=== PATIENT | male | born 1970 | race Caucasian/White ===

== ENCOUNTER 2024-01-23 10:55 | Emergency (ER) | payer OTHER, SELFPAY ==
[2024-01-23] MEDS ORDERED: ONDANSETRON 4 MG/2 ML VIAL ONE ×2 (11:15→11:47)
[2024-01-23] MEDS ORDERED: KETOROLAC 30 MG/ML INJ ONE (11:15)
[2024-01-23] MEDS ORDERED: MORPHINE 4 MG/ML SYR ONE (11:16)
[2024-01-23] MEDS ORDERED: NA CHLORIDE 0.9% 1,000 ML ONE ×2 (11:16→12:14)
[2024-01-23] MEDS ORDERED: FAMOTIDINE 20 MG/2 ML VIAL IV ONE (11:16)
--- NOTE | 2024-01-23 11:27 | RAD REPORT ---
[facility] DES[facility] Protocol - 01/23/2024 11:10 am CLINICAL HISTORY: FLANK PAIN COMPARISON: No comparisons TECHNIQUE: CT of the abdomen and pelvis was performed without contrast. All CT scans are performed using dose optimization technique as appropriate and may include automated exposure control or mA/KV adjustment according to patient size. FINDINGS: Lower chest: No acute abnormality. Mild circumferential thickened distal esophagus could r eflect esophagitis. Liver: No acute abnormality or suspicious lesions. Hepatic steatosis Biliary: No biliary ductal dilatation. Stomach: No significant focal abnormality. Duodenum: No significant focal abnormality. Pancreas: No significant abnormality. Spleen: No significant abnormality. 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 No follow-up is required. Kidney/ureter: Mild left-sided hydroureteronephrosis secondary to a 3 mm stone at the left UVJ. There is also likely a left renal sinus cyst. 18 mm intermediate attenuation lesion at the interpolar aspe ct of the left kidney. Retroperitoneum: No retroperitoneal adenopathy. Vascular: No aneurysm. Bowel: Normal appendix. No bowel obstruction.. Peritoneum: No ascites or free air. Bladder: Grossly unremarkable. Reproductive: No adnexal masses. Bones: No acute fracture. Other: n/a IMPRESSION: Mild left-sided hydronephrosis secondary to a 3 mm stone at the left UVJ. Indeterminate left renal lesion, possibly complex cyst. Recommend nonemergent renal ultrasound.
[2024-01-23 11:36] LABS: Absolute Lymphocytes (CBC) 0.8 K/uL (0.7-4.9); Absolute Monocytes 0.7 K/uL (0.1-1.3); Absolute Neutrophil 6.9 K/uL (1.8-8.0); Basophils % 0.5 % (0-1.3); Eosinophils % 0.4 % (0-4.4); Hematocrit 38.9 % (39.6-49.0); Hemoglobin 13.3 g/dL (13.6-17.9); Lymphocytes % 9.5 % (15.3-44.8); MCH 28.9 pg (27.0-35.0); MCHC 34.1 g/dL (32.0-36.0); MCV 84.6 fL (80-100); MPV 7.7 fL (7.6-11.3); Monocytes % 8.8 % (3.3-12.3); Neutrophils % 80.8 % (41.7-73.7); Platelets 211 thou/uL (152-406); RBC Red Blood Cell Count 4.59 M/uL (4.33-5.43); Red Cell Distribution Width 13.4 % (12.1-15.2)
[2024-01-23 11:39] LABS: Specific Gravity > 1.030 (1.005-1.030); Sqamous Epithelial None Seen /HPF (None Seen); Urine Bacteria None Seen /HPF (<20); Urine Bilirubin NEGATIVE (Negative); Urine Blood 3+ (Negative); Urine Clarity Extremely Turbid (Clear); Urine Color Yellow (Yellow); Urine Culture Reflex Order NOT NEEDED; Urine Glucose NEGATIVE (Negative); Urine Ketones NEGATIVE (Negative); Urine Microscopic Reflex YN ORDER UMIC; Urine Mucus 4+ /HPF (None Seen); Urine Nitrite NEGATIVE (Negative); Urine Protein 1+ (Negative); Urine RBC >50 /HPF (None Seen); Urine Urobilinogen 1+ (Normal); Urine WBC <5 /HPF (<5); Urine pH 5.5 (5.0-7.0)
[2024-01-23] MEDS ORDERED: HYDROMORPHONE HCL 1 MG/ML INJ ONE (11:47)
[2024-01-23 11:53] LABS: Albumin 4.3 g/dL (3.4-5.0); Albumin/Globulin Ratio 1.3 (1.1-1.8); Anion Gap 7.1 mEq/L (5.0-15.0); Bilirubin Total 1.9 mg/dL (0.2-1.0); Globulin 3.4 g/dL (2.3-3.5); Potassium 4.1 mEq/L (3.5-5.1); Protein, Total 7.7 g/dL (6.4-8.2)
[2024-01-23] MEDS ORDERED: CEFTRIAXONE 1000 MG/VIAL ONE (12:14)
[2024-01-23] MEDS ORDERED: TAMSULOSIN 0.4 MG SR CAP ONE (12:14)
--- NOTE | 2024-01-23 12:36 | ER ---
Nurse's Notes [facility] Name: Jun Jones Jr Age: 53 yrs Sex: Male : 1970 Arrival Date: 01/23/2024 Time: 10:55 Bed 18 Private MD: Diagnosis: Hydronephrosis with renal and ureteral calculous obstruction-3 mm at UVJ Presentation: 01/22 11:02 Chief complaint: Patient states: Left flank pain since this morning. Also reports go2 nausea without vomiting. Coronavirus screen: nausea. 11:02 Method Of Arrival: EMS: [facility] go2 11:04 Ebola Screen: Patient denies travel to an Ebola-affected area in the 21 days before go2 illness onset. 11:04 Initial Sepsis Screen: Does the patient meet any 2 criteria? No. Patient's initial go2 sepsis screen is negative. Does the patient have a suspected source of infection? No. Patient's initial sepsis screen is negative. Risk Assessment: Do you want to hurt yourself or someone else? Patient reports no desire to harm self or others. Onset of symptoms was January 23, 2024 at 08:00. Care prior to arrival: Medication(s) given: zofran 4 mg. Activity prior to arrival: None. 11:04 Acuity: JAMAL 3 go2 Triage Assessment: 11:09 General: Appears in no apparent distress. comfortable, well groomed, Behavior is calm, go2 cooperative, appropriate for age. Pain: Pain does not radiate. Pain currently is 5 out of 10 on a pain scale. Quality of pain is described as aching, Pain began suddenly, Is continuous, Alleviated by nothing. Aggravated by Noted to be Also complains of. EENT:. Historical: - Allergies: 11:08 No Known Allergies; go2 - PMHx: 11:11 None; go2 - Immunization history:: Adult Immunizations up to date. - Infectious Disease History:: Denies. - Social history:: Patient/guardian denies using Smoking status: unknown Patient uses The patient lives No barriers to communication noted, The patient attends The patient works The patient is unemployed. - Family history:: No immediate family members are acutely ill. Screenin:36 [facility] ED Fall Risk Assessment (Adult) History of falling in the last 3 months, go2 including since admission No falls in past 3 months (0 pts) Confusion or Disorientation No (0 pts) Intoxicated or Sedated No (0 pts) Impaired Gait No (0 pts) Mobility Assist Device Used No (0 pt) Altered Elimination No (0 pt) Score/Fall Risk Level 0 - 2 = Low Risk. Abuse screen: Denies threats or abuse. Denies injuries from another. Nutritional screening: No deficits noted. Tuberculosis screening: No symptoms or risk factors identified. VAN Screening: Arm Drift: Patient shows no arm weakness. Visual Disturbance: No visual disturbance noted. Aphasia: No aphasia noted. Neglect: No neglect noted. [place] Swallow Protocol. Assessment: 11:33 General: Appears uncomfortable, Behavior is calm, cooperative, appropriate for age, go2 Smells of Reports Denies fever, fatigue, chills. Pain: Complains of pain in L flank Pain does not radiate. Pain currently is 9 out of 10 on a pain scale. Neuro: No deficits noted. Cardiovascular: No deficits noted. Cardiovascular: Reports nausea, Denies chest pain. Respiratory: No deficits noted. GI: No signs and/or symptoms were reported involving the gastrointestinal system. Reports nausea. GI: Reports nausea. : No deficits noted. EENT: No deficits noted. Derm: No deficits noted. Musculoskeletal: No deficits noted. Denies. 13:05 Reassessment: Patient is alert, oriented x 3, equal unlabored respirations, skin go2 warm/dry/pink. Vital Signs: 11:04 BP 133 / 71; Pulse 62; Resp 16; Temp 98.2; Pulse Ox 99% ; Weight 124.74 kg; Height 6 go2 ft. 3 in. ; 12:23 BP 150 / 82; Resp 20; Temp 98.4; Pulse Ox 99% ; go2 13:05 BP 133 / 66; Pulse 70; Resp 16; Temp 98; Pulse Ox 99% ; go2 11:04 Body Mass Index 34.37 (124.74 kg, 190.5 cm) go2 NIH Stroke Scale Scores: 11:36 NIHSS Score: 0 go2 ED Course: 10:59 Patient arrived in ED. [facility] 10:59 Jayro Busby MD is Attending Physician. [facility] 11:00 Patient has correct armband on for positive identification. Bed in low position. Call go2 light in reach. Side rails up X 1. Pulse ox on. NIBP on. 11:00 Patient is placed in psych hold. go2 11:01 Elis Wise, ZOILA is Primary Nurse. go2 11:08 Triage completed. go2 11:10 Arm band placed on Patient placed in an exam room, on a stretcher. go2 11:11 CT Stone Protocol In Process Unspecified. EDMS 11:[address] via wheelchair. go2 11:31 Inserted saline lock: 20 gauge in right antecubital area, using aseptic technique. go2 11:32 CBC with Diff Sent. go2 11:32 CMP Sent. go2 11:32 Lipase Sent. go2 11:32 Urinalysis w/ reflexes Sent. go2 11:37 No provider procedures requiring assistance completed. go2 12:35 Helio Oquendo MD is Referral Physician. [facility] 13:05 Provided Education on: NA. go2 13:05 IV discontinued, intact, bleeding controlled, No redness/swelling at site. Pressure go2 dressing applied. Administered Medications: 11:32 Drug: NS 0.9% IV 1000 ml IV at 1 bolus Per protocol; 1000 mL bolus Route: IV; Rate: 1 go2 bolus; Site: right antecubital; 11:52 Follow up: IV Status: Completed infusion go2 11:32 Drug: Famotidine IVP 20 mg IVP once; dilute with 10 mL 0.9% NaCl; give over 2 minutes go2 Route: IVP; Site: right antecubital; 13:11 Follow up: Response: No adverse reaction go2 11:32 Drug: Ondansetron IVP 4 mg IVP once; over 2 minutes Route: IVP; Site: right antecubital;go2 11:52 Follow up: Response: No adverse reaction go2 11:33 Drug: morphine IVP or IV 4 mg IVP once over 4 mins Route: IVP; Infused Over: 4 mins; go2 Site: left antecubital; 11:52 Follow up: Response: No adverse reaction go2 11:39 Drug: Ketorolac IVP 30 mg IVP once Route: IVP; Site: right antecubital; go2 11:52 Follow up: Response: No adverse reaction go2 11:51 Drug: Ondansetron IVP 4 mg IVP once; over 2 minutes Route: IVP; Site: right antecubital;go2 11:52 Follow up: Response: No adverse reaction go2 11:51 Drug: HYDROmorphone IVP 1 mg IVP once Route: IVP; Site: right antecubital; go2 11:52 Follow up: Response: No adverse reaction go2 12:21 Drug: NS 0.9% IV 1000 ml IV at 1 bolus Per protocol; 1000 mL bolus Route: IV; Rate: 1 go2 bolus; Site: right antecubital; 12:30 Follow up: IV Status: Completed infusion; IV Intake: 1000ml go2 12:21 Drug: Rocephin IV 1 grams IV at per protocol once; Given slow IV push per pharmacy go2 instructions Route: IV; Rate: per protocol; Site: right antecubital; 12:23 Follow up: IV Status: Completed infusion; IV Intake: 10ml go2 12:21 Drug: Flomax PO 0.4 mg PO once Route: PO; go2 13:08 Follow up: Response: No adverse reaction go2 Medication: 11:39 VIS not applicable for this client. go2 Intake: 12:23 IV: 10ml; Total: 10ml. go2 12:30 IV: 1000ml; Total: 1010ml. go2 Outcome: 12:35 Discharge ordered by . amna 13:04 Discharged to home go2 13:04 Discharged to home ambulatory, 13:04 Condition: good 13:04 Condition: improved 13:04 Discharge instructions given to patient, Instructed on discharge instructions, follow up and referral plans. medication usage, Demonstrated understanding of instructions, follow-up care, medications, Prescriptions given X 4, 13:06 Patient left the ED. go2 NIH Stroke Scale - NIH Stroke Score Date: 01/23/2024 Time: 11:36 Total Score = 0 10. Dysarthria (speech clarity - read or repeat words) - 0(Normal) 11. Extinction and Inattention (visual/tactile/auditory/spatial/personal) - 0(No abnormality) 1a. Level of Consciousness (LOC) - 0(Alert) 1b. Level of Consciousness (LOC) (Month \T\ Age) - 0(Both) 1c. LOC Commands (Open \T\ Closes Eyes/Wrapper Hand) - 0(Both) 2. Best Gaze (Lateral Gaze Paresis) - 0(Normal) 3. Visual Field Loss - 0(No visual loss) 4. Facial Palsy - 0(Normal) 5a. Left Arm: Motor (10-second hold) - 0(No drift) 5b. Right Arm: Motor (10-second hold) - 0(No drift) 6a. Left Leg: Motor (5-second hold - always test supine) - 0(No drift) 6b. Right Leg: Motor (5-second hold - always test supine) - 0(No drift) 7. Limb Ataxia (finger/nose \T\ heel/knight - test with eyes open) - 0(Absent) 8. Sensory Loss (pinprick arms/legs/face) - 0(Normal) 9. Best Language: Aphasia (description/naming/reading) - 0(No aphasia) Initials: go2 Signatures: Dispatcher [employer] EDJayro Martin MD MD cha [place], Gabby RN RN go2 Corrections: (The following items were deleted from the chart) 13:07 13:07 IV Status: Completed infusion; IV Intake: 1000ml go2 go2
--- NOTE | 2024-01-23 12:36 | EDPHYS ---
Physician Documentation [facility] Name: Jun Jones Jr Age: 53 yrs Sex: Male : 1970 Arrival Date: 01/23/2024 Time: 10:55 Bed 18 Private MD: ED Physician Jayro Busby HPI: 01/22 12:19 This 53 yrs old Male presents to ER via EMS with complaints of Flank Pain - amna Left. 12:19 The patient complains of pain in the left low back and left mid back. The pain radiates amna to the left low back and left mid back. Onset: The symptoms/episode began/occurred just prior to arrival, this morning. Modifying factors: The symptoms are alleviated by nothing. the symptoms are aggravated by nothing. Associated signs and symptoms: Pertinent positives: nausea, vomiting. Severity of pain: At its worst the pain was severe in the emergency department the pain is unchanged. The patient has not experienced similar symptoms in the past. Historical: - Allergies: 11:08 No Known Allergies; go2 - PMHx: 11:11 None; go2 - Immunization history:: Adult Immunizations up to date. - Infectious Disease History:: Denies. - Social history:: Patient/guardian denies using Smoking status: unknown Patient uses The patient lives No barriers to communication noted, The patient attends The patient works The patient is unemployed. - Family history:: No immediate family members are acutely ill. ROS: 12:22 Constitutional: Negative for fever, chills, and weight loss, Eyes: Negative for injury, amna pain, redness, and discharge, ENT: Negative for injury, pain, and discharge, Neck: Negative for injury, pain, and swelling, Cardiovascular: Negative for chest pain, palpitations, and edema, Respiratory: Negative for shortness of breath, cough, wheezing, and pleuritic chest pain, Back: Negative for injury and pain, : Negative for injury, bleeding, discharge, and swelling, MS/Extremity: Negative for injury and deformity, Skin: Negative for injury, rash, and discoloration, Neuro: Negative for headache, weakness, numbness, tingling, and seizure, Psych: Negative for depression, anxiety, suicide ideation, homicidal ideation, and hallucinations, Allergy/Immunology: Negative for hives, rash, and allergies, Endocrine: Negative for neck swelling, polydipsia, polyuria, polyphagia, and marked weight changes, Hematologic/Lymphatic: Negative for swollen nodes, abnormal bleeding, and unusual bruising, 12:22 Abdomen/GI: Positive for abdominal pain, nausea, vomiting, abdominal distension, Exam: 12:22 Constitutional: This is a well developed, well nourished patient who is awake, alert, amna and in no acute distress. Head/Face: Normocephalic, atraumatic. Eyes: Pupils equal round and reactive to light, extra-ocular motions intact. Lids and lashes normal. Conjunctiva and sclera are non-icteric and not injected. Cornea within normal limits. Periorbital areas with no swelling, redness, or edema. ENT: Nares patent. No nasal discharge, no septal abnormalities noted. Tympanic membranes are normal and external auditory canals are clear. Oropharynx with no redness, swelling, or masses, exudates, or evidence of obstruction, uvula midline. Mucous membranes moist. Neck: Trachea midline, no thyromegaly or masses palpated, and no cervical lymphadenopathy. Supple, full range of motion without nuchal rigidity, or vertebral point tenderness. No Meningismus. Chest/axilla: Normal chest wall appearance and motion. Nontender with no deformity. No lesions are appreciated. Cardiovascular: Regular rate and rhythm with a normal S1 and S2. No gallops, murmurs, or rubs. Normal PMI, no JVD. No pulse deficits. Respiratory: Lungs have equal breath sounds bilaterally, clear to auscultation and percussion. No rales, rhonchi or wheezes noted. No increased work of breathing, no retractions or nasal flaring. Male : Normal genitalia with no discharge or lesions. Skin: Warm, dry with normal turgor. Normal color with no rashes, no lesions, and no evidence of cellulitis. MS/ Extremity: Pulses equal, no cyanosis. Neurovascular intact. Full, normal range of motion. Neuro: Awake and alert, GCS 15, oriented to person, place, time, and situation. Cranial nerves II-XII grossly intact. Motor strength 5/5 in all extremities. Sensory grossly intact. Cerebellar exam normal. Normal gait. Psych: Awake, alert, with orientation to person, place and time. Behavior, mood, and affect are within normal limits. 12:22 Abdomen/GI: Inspection: distension, that is mild, Bowel sounds: normal, Palpation: soft, in all quadrants, Liver: no appreciated palpable abnormalities, Hernia: not appreciated, 12:22 Back: pain, that is mild, of the left low back and left mid back, CVA tenderness, that is mild, is noted on the left, vertebral tenderness, is not appreciated, muscle spasm, is not present, Straight leg raises: of both lower extremities does not illicit pain, Vital Signs: 11:04 BP 133 / 71; Pulse 62; Resp 16; Temp 98.2; Pulse Ox 99% ; Weight 124.74 kg; Height 6 go2 ft. 3 in. ; 12:23 BP 150 / 82; Resp 20; Temp 98.4; Pulse Ox 99% ; go2 13:05 BP 133 / 66; Pulse 70; Resp 16; Temp 98; Pulse Ox 99% ; go2 11:04 Body Mass Index 34.37 (124.74 kg, 190.5 cm) go2 NIH Stroke Scale Scores: 11:36 NIHSS Score: 0 go2 MDM: 10:59 Patient medically screened. amna 10:59 Patient medically screened. anma 12:30 Differential diagnosis: nephrolithiasis, pyelonephritis, UTI, testicular torsion, amna diverticulitis, pancreatitis, appendicitis, bowel obstruction, Cholelithiasis, diverticulitis, gastritis. Data reviewed: vital signs, nurses notes, lab test result(s), radiologic studies, CT scan. Consideration of Admission/Observation Escalation of care including admission/observation considered. I considered the following discharge prescriptions or medication management in the emergency department Medications were administered in the Emergency Department. See MAR. Independent interpretation of the following test(s) in the Emergency Department CT Scan: My interpretation is ct stone. Test considered but Not performed: Ultrasound no renal usg. Care significantly affected by the following chronic conditions: none. Counseling: I had a detailed discussion with the patient and/or guardian regarding the historical points, exam findings, and any diagnostic results supporting the discharge/admit diagnosis, lab results, radiology results, the need for outpatient follow up, for definitive care, a family practitioner, a urologist. 01/22 11:00 Order name: CBC with Diff; Complete Time: 11:46 [facility] 01/22 11:00 Order name: CMP; Complete Time: 12:18 amna 01/22 11:00 Order name: Lipase; Complete Time: 12:18 [facility] 01/22 11:00 Order name: Urinalysis w/ reflexes; Complete Time: 11:46 [facility] 01/22 11:00 Order name: CT Stone Protocol; Complete Time: 11:46 [facility] 01/22 11:00 Order name: IV Saline Lock; Complete Time: 11:32 [facility] 01/22 11:00 Order name: Labs collected and sent; Complete Time: 11:32 [facility] Administered Medications: 11:32 Drug: NS 0.9% IV 1000 ml IV at 1 bolus Per protocol; 1000 mL bolus Route: IV; Rate: 1 go2 bolus; Site: right antecubital; 11:52 Follow up: IV Status: Completed infusion go2 11:32 Drug: Famotidine IVP 20 mg IVP once; dilute with 10 mL 0.9% NaCl; give over 2 minutes go2 Route: IVP; Site: right antecubital; 13:11 Follow up: Response: No adverse reaction go2 11:32 Drug: Ondansetron IVP 4 mg IVP once; over 2 minutes Route: IVP; Site: right antecubital;go2 11:52 Follow up: Response: No adverse reaction go2 11:33 Drug: morphine IVP or IV 4 mg IVP once over 4 mins Route: IVP; Infused Over: 4 mins; go2 Site: left antecubital; 11:52 Follow up: Response: No adverse reaction go2 11:39 Drug: Ketorolac IVP 30 mg IVP once Route: IVP; Site: right antecubital; go2 11:52 Follow up: Response: No adverse reaction go2 11:51 Drug: Ondansetron IVP 4 mg IVP once; over 2 minutes Route: IVP; Site: right antecubital;go2 11:52 Follow up: Response: No adverse reaction go2 11:51 Drug: HYDROmorphone IVP 1 mg IVP once Route: IVP; Site: right antecubital; go2 11:52 Follow up: Response: No adverse reaction go2 12:21 Drug: NS 0.9% IV 1000 ml IV at 1 bolus Per protocol; 1000 mL bolus Route: IV; Rate: 1 go2 bolus; Site: right antecubital; 12:30 Follow up: IV Status: Completed infusion; IV Intake: 1000ml go2 12:21 Drug: Rocephin IV 1 grams IV at per protocol once; Given slow IV push per pharmacy go2 instructions Route: IV; Rate: per protocol; Site: right antecubital; 12:23 Follow up: IV Status: Completed infusion; IV Intake: 10ml go2 12:21 Drug: Flomax PO 0.4 mg PO once Route: PO; go2 13:08 Follow up: Response: No adverse reaction go2 Disposition Summary: 01/23/24 12:35 Discharge Ordered Notes: Location: Home amna Problem: new amna Symptoms: have improved amna Condition: Stable amna Diagnosis - Hydronephrosis with renal and ureteral calculous obstruction - 3 mm at UVJ amna Followup: amna - With: Private Physician - When: 2 - 3 days - Reason: Recheck today's complaints, Continuance of care, Re-evaluation by your physician Followup: amna - With: Helio Oquendo MD - When: 2 - 3 days - Reason: Recheck today's complaints, Re-evaluation by your physician Discharge Instructions: - Discharge Summary Sheet amna - Kidney Stones amna - Kidney Stones, [id number] amna - Hydronephrosis amna - Dietary Guidelines to Help Prevent Kidney Stones [facility] Forms: - Medication Reconciliation Form amna - Antibiotic Education amna - Prescription Opioid Use amna - Patient Portal Instructions [facility] - Leadership Thank You Letter [facility] Prescriptions: - Flomax 0.4 mg Oral capsule - take 1 capsule ORAL route every day at bedtime; 20 capsule; Refills: 0, Product amna Selection Permitted - acetaminophen-codeine 300-30 mg Oral tablet - take 2 tablet ORAL route every 6 hours; 20 tablet; Refills: 0, Product amna Selection Permitted - ketorolac 10 mg Oral tablet - take 1 tablet ORAL route 3 times per day for 4 days; 12 tablet; Refills: 0, [facility] Product Selection Permitted - ondansetron 4 mg Oral Tablet,disintegrating - take 1 tablet ORAL route every 6-8 hours for 5 days; 20 tablet; Refills: 0, [facility] Product Selection Permitted - Cipro 500 mg Oral Tablet - take 1 tablet ORAL route every 12 hours for 7 days; 14 tablet; Refills: 0, [facility] Product Selection Permitted NIH Stroke Scale - NIH Stroke Score Date: 01/23/2024 Time: 11:36 Total Score = 0 10. Dysarthria (speech clarity - read or repeat words) - 0(Normal) 11. Extinction and Inattention (visual/tactile/auditory/spatial/personal) - 0(No abnormality) 1a. Level of Consciousness (LOC) - 0(Alert) 1b. Level of Consciousness (LOC) (Month \T\ Age) - 0(Both) 1c. LOC Commands (Open \T\ Closes Eyes/Apartment Community Assistant Manager) - 0(Both) 2. Best Gaze (Lateral Gaze Paresis) - 0(Normal) 3. Visual Field Loss - 0(No visual loss) 4. Facial Palsy - 0(Normal) 5a. Left Arm: Motor (10-second hold) - 0(No drift) 5b. Right Arm: Motor (10-second hold) - 0(No drift) 6a. Left Leg: Motor (5-second hold - always test supine) - 0(No drift) 6b. Right Leg: Motor (5-second hold - always test supine) - 0(No drift) 7. Limb Ataxia (finger/nose \T\ heel/knight - test with eyes open) - 0(Absent) 8. Sensory Loss (pinprick arms/legs/face) - 0(Normal) 9. Best Language: Aphasia (description/naming/reading) - 0(No aphasia) Initials: go2 Signatures: Dispatcher [employer] EDMS Jayro Busby MD MD cha [place], Gabby, RN RN go2 Corrections: (The following items were deleted from the chart) 11:01 11:01 CBC+H.LAB.BRZ ordered. EDMS EDMS 11:01 11:01 COMPREHENSIVE METABOLIC PANEL+C.LAB.BRZ ordered. EDMS EDMS 11:01 11:01 LIPASE+C.LAB.BRZ ordered. EDMS EDMS 11:01 11:01 Urinalysis+U.LAB.BRZ ordered. EDMS EDMS
[2024-01-23 13:20] VITALS: O2SAT 99
[2024-01-23 13:31] VITALS: BP 133/66; TEMP 98
== END 2024-01-23 13:06 | disposition home or self-care (01) ==
LOC: ER 10:55
DX: N13.2 Hydronephrosis with renal and ureteral calculous obstruction (principal)
CPT/HCPCS: 85025; 81001; 36415; 83690; 80053; 76377; 74176; 99285; J1170; J2405 ×2; J7030 ×2; J0696